=== PATIENT | male | born 1995 | race Caucasian/White ===

== ENCOUNTER 2018-05-29 18:12 | Emergency (ER) | payer SELFPAY ==
[~2018-05-29] VITALS: Ht 180.3 cm; Wt 107.7 kg
--- NOTE | 2018-05-29 18:34 | NUR ---
PT AMBULATORY TO ROOM 25 W/ C/O ABD PAIN X 1 MONTH. WORSE TODAY AFTER EATING. PT STATES GENERALIZED PAIN THROUGHOUT ABDOMEN. STATES HX ETOH USE QOD. PT STATES NAUSEA TODAY. EMESIS A FEW DAYS AGO. NONE TODAY. PT DENIES ANY OTHER HX. PT RESTING ON GURNEY. NADN. WARM BLANKET PROVIDED. MONITORS APPLIED.
[2018-05-29 18:46] LABS: BASOPHILS # (AUTO) 0.05 x10^3/uL (0-0.1); BASOPHILS % (AUTO) 1 % (0-1); EOSINOPHILS # (AUTO) 0.11 x10^3/uL (0-0.4); EOSINOPHILS % (AUTO) 1 % (1-7); LYMPHOCYTES # (AUTO) 2.25 x10^3/uL (1-3.4); LYMPHOCYTES % (AUTO) 24 % (22-44); MD NO; MEAN CORPUSCULAR HEMOGLOBIN 31.2 pg (27.5-34.5); MEAN CORPUSCULAR HGB CONC 34.1 g/dL (33.2-36.2); MEAN CORPUSCULAR VOLUME 91.3 fL (81-97); MEAN PLATELET VOLUME 8.8 fL (7.4-10.4); MONOCYTES # (AUTO) 0.52 x10^3/uL (0.2-0.8); MONOCYTES % (AUTO) 6 % (2-9); NEUTROPHILS # (AUTO) 6.29 x10^3/uL (1.8-6.8); NEUTROPHILS % (AUTO) 68 % (42-75); PLATELET COUNT 232 x10^3/uL (130-400); RED BLOOD COUNT 6.01 x10^6/uL (4.38-5.82); RED CELL DISTRIBUTION WIDTH 12.6 % (9.4-14.8)
[2018-05-29 18:53] LABS: ALANINE AMINOTRANSFERASE 30 U/L (12-78); ALBUMIN 4.5 g/dL (3.4-5.0); ANION GAP 8 mmol/L (5-15); CALCIUM 9.8 mg/dL (8.5-10.1); CHLORIDE 104 mmol/L (98-107); CREATININE 1.09 mg/dL (0.7-1.3)
[2018-05-29 18:56] LABS: ALKALINE PHOSPHATASE 70 U/L (45-117); BILIRUBIN,TOTAL 0.6 mg/dL (0.2-1.0); TOTAL PROTEIN 8.4 g/dL (6.4-8.2)
--- NOTE | 2018-05-29 19:16 | NUR ---
REPORT GIVEN TO NENA CERDA.
[2018-05-29 19:21] LABS: MICROSCOPIC INDICATED
[2018-05-29 19:29] LABS: CULTURE INDICATED? NO
--- NOTE | 2018-05-29 19:29 | NUR ---
REPORT RECEIVED FROM NENA BRANCH AT BEDSIDE. PT A&O, RESPS EVEN AND UNLABORED, DENIES PAIN AT THIS TIME. NO N/V AT THIS TIME. AWAITING US RESULTS AND DISPO AT THIS TIME. PT DENIES ANY PAIN.
--- NOTE | 2018-05-29 20:07 | NUR ---
EDMD LYNSEY AT BEDSIDE TO EXPLAIN RESULTS AND POC.
[2018-05-29 20:35] VITALS: BP 126/69
== END 2018-05-29 20:37 | disposition home or self-care (01) ==
LOC: ED 20:05
DX: R10.84 Generalized abdominal pain (principal)
CPT/HCPCS: 36415; 76700; 80053; 81001; 83690; 85025; 99284